=== PATIENT | female | born 1980 | race African-American/Black ===

== ENCOUNTER 2022-06-19 02:47 | Emergency (ER) | payer BC ==
[~2022-06-19] VITALS: Ht 180.3 cm; Wt 75.0 kg
[2022-06-19 02:59] VITALS: BP 104/74; TEMP 98.5
[2022-06-19 04:00] LABS: HEMATOCRIT 39.6 % (37.0-47.0); HEMOGLOBIN 13.9 g/dl (12.5-16.0); MEAN CELL VOLUME 81 fl (80.0-100.0); MEAN CORPUSCULAR HEMOGLOBIN 28 pg (27-31); MEAN CORPUSCULAR HGB CONC 35 g/dl (33.0-37.0); MEAN PLATELET VOLUME 9.9 fl (7.4-10.4); PLATELET COUNT 350 K/mm3 (130-400); REDCELL DISTRIBUTION WIDTH-CV 13.9 % (11.5-14.5)
[2022-06-19 04:14] LABS: ALANINE AMINOTRANSFERASE 22 U/L (0-55); ALBUMIN 3.7 gm/dL (3.5-5.0); ALKALINE PHOSPHATASE 69 U/L (40-150); ANION GAP 12 mmol/L (7-16); AST,SGOT 20 U/L (5-34); BILIRUBIN,TOTAL 0.7 mg/dL (0.2-1.2); BLOOD UREA NITROGEN 19 mg/dL (7-19); CALCIUM 9.2 mg/dL (8.4-10.2); CARBON DIOXIDE 18 mmol/L (22-29); CHLORIDE 108 mmol/L (98-107); CREATININE, serum 1.08 mg/dL (0.57-1.11); GLUCOSE 133 mg/dL (70-99); POTASSIUM 3.9 mmol/L (3.5-4.5); SODIUM 138 mmol/L (136-145); TOTAL PROTEIN 7.5 gm/dL (6.2-8.1)
[2022-06-19 04:27] LABS: HCG,QUANTITATIVE < 1 mIU/mL
[2022-06-19 05:20] LABS: LYMPHOCYTE 2 % (20.0-51.0); NEUTROPHILS 95 % (42.0-75.2); PLATELET ESTIMATE NORMAL (NORMAL)
[2022-06-19] MEDS ORDERED: ZOFRAN ODT4 MG PO (05:50)
[2022-06-19 06:44] VITALS: PULSE 76
== END 2022-06-19 06:44 | disposition home or self-care (01) ==
LOC: COL.ER 02:47
PROVIDERS: Personal Emergency Response Attendant
DX: R11.10 Vomiting, unspecified (principal); R19.7 Diarrhea, unspecified; Z20.822 Contact with and (suspected) exposure to COVID-19
CPT/HCPCS: J1885; J2405; J7030